=== PATIENT | male | born 1945 | race Caucasian/White ===

== ENCOUNTER 2016-10-25 15:31 | Inpatient (IN) | payer MEDICARE, BC ==
[~2016-10-25] VITALS: Ht 180.3 cm; Wt 76.4 kg
[~2016-10-25 15:31] MED LIST: ALLO100T PO; BRIN8DRO LEFTEYE; CLOP75TA16 PO
[2016-10-25] MEDS ORDERED: ASPIRIN 325MG EC TABLET PO ONE (16:15)
[2016-10-25 16:57] LABS: BASOPHILS % 0.8 % (0.0-2.0); CHLORIDE 107 mEq/L (98-107); EOSINOPHILS % 5.7 % (0.0-5.0); HEMATOCRIT. 40.5 % (42.0-52.0); HEMOGLOBIN. 13.9 g/dL (14.0-18.0); LYMPHOCYTES % 34.4 % (20.0-50.0); MEAN CORPUSCULAR HEMOGLOBIN 32.4 pg (28.0-32.0); MEAN CORPUSCULAR VOLUME 94.6 fL (80.0-94.0); MONOCYTES % 13.4 % (2.0-8.0); NEUTROPHILS % 45.7 % (40.0-76.0); PLATELET 202 x1000/uL (130-400); RED BLOOD CELL COUNT 4.28 mill/uL (4.7-6.1)
[2016-10-25 17:00] LABS: INR 1.1; PROTHROMBIN TIME 11.4 sec (9.4-11.6)
[2016-10-25 17:03] LABS: CARBON DIOXIDE 28 mEq/L (21-32)
[2016-10-25 17:07] LABS: TROPONIN I < 0.02 ng/mL (0.00-0.04)
[2016-10-25 21:05] VITALS: BP 140/45
[2016-10-25 22:00] VITALS: BP 114/70
[2016-10-25] MEDS ORDERED: HYDROCODONE/ACETAMINOPHEN 5/325MG TABLET PO PRN (23:30)
[2016-10-25] MEDS ORDERED: ONDANSETRON HCL 4MG/2ML VIAL IV PRN (23:30)
[2016-10-25] MEDS ORDERED: IPRATROPIUM/ALBUTEROL 0.5-3(2.5)MG/3ML NEB INH PRN (23:30)
[2016-10-25] MEDS ORDERED: CLONIDINE 0.1MG TABLET PO PRN (23:30)
[2016-10-25] MEDS ORDERED: MAGNESIUM/ALUMINUM HYDROXIDE/SIMETHICONE 30ML UDC PO PRN (23:30)
[2016-10-25] MEDS ORDERED: DOCUSATE SODIUM 100MG CAPSULE PO PRN (23:30)
[2016-10-25] MEDS ORDERED: ACETAMINOPHEN 325MG TABLET PO PRN (23:30)
[2016-10-26] VITALS (18 sets, daily range): BP systolic 90–128; BP diastolic 53–79
[2016-10-26 01:50] LABS: CLARITY URINE CLEAR (CLEAR); COLOR URINE YELLOW (YELLOW); GLUCOSE URINE NEGATIVE (NEGATIVE); KETONES URINE NEGATIVE (NEGATIVE); LEUKOCYTE ESTERASE URINE NEGATIVE (NEGATIVE); NITRITE URINE NEGATIVE (NEGATIVE); OCCULT BLOOD URINE NEGATIVE (NEGATIVE); PROTEIN URINE NEGATIVE (NEGATIVE); SPECIFIC GRAVITY URINE 1.022 (1.005-1.030); UROBILINOGEN URINE 0.2 E.U./dL (0.2-1.0)
[2016-10-26] MEDS ORDERED: ZET10 PO (02:34)
[2016-10-26] MEDS ORDERED: ROSU5TAB PO (02:34)
[2016-10-26] MEDS ORDERED: OLME40TA12 PO (02:34)
[2016-10-26] MEDS ORDERED: LORA1TAB PO (02:34)
[2016-10-26] MEDS ORDERED: ASPI-867 PO (02:34)
[2016-10-26] MEDS ORDERED: ATEN100T PO (02:34)
[2016-10-26] MEDS ORDERED: COLC0.6T66 PO (02:34)
[2016-10-26 02:53] LABS: *AMPHETAMINES SCREEN URINE NEGATIVE (NEGATIVE); *BARBITURATES SCREEN URINE NEGATIVE (NEGATIVE); *BENZODIAZEPINES SCREEN URINE NEGATIVE (NEGATIVE); *COCAINE SCREEN URINE NEGATIVE (NEGATIVE); CANNABINOID URINE SCREEN NEGATIVE (NEGATIVE); METHADONE URINE SCREEN NEGATIVE (NEGATIVE); OPIATES URINE SCREEN NEGATIVE (NEGATIVE); PHENCYCLIDINE URINE SCREEN NEGATIVE (NEGATIVE)
[2016-10-26 06:31] LABS: BASOPHILS % 0.8 % (0.0-2.0); EOSINOPHILS % 8.2 % (0.0-5.0); HEMATOCRIT. 40.8 % (42.0-52.0); HEMOGLOBIN. 14.1 g/dL (14.0-18.0); LYMPHOCYTES % 43.8 % (20.0-50.0); MEAN CORPUSCULAR HEMOGLOBIN 32.7 pg (28.0-32.0); MEAN CORPUSCULAR VOLUME 94.6 fL (80.0-94.0); MEAN PLATELET VOLUME 8.1 fl (7.4-10.4); NEUTROPHILS % 33.2 % (40.0-76.0); PLATELET 184 x1000/uL (130-400); RED BLOOD CELL COUNT 4.32 mill/uL (4.7-6.1); RED CELL DISTRIBUTION WIDTH 13.1 % (11.6-14.6)
[2016-10-26 07:59] LABS: CARBON DIOXIDE 23 mEq/L (21-32); CREATINE KINASE 190 IU/L (39-308); CREATINE KINASE MB FRACTION 2.8 ng/mL (0.5-3.6); HDL CHOLESTEROL 38 mg/dL (40-59); LDL CHOLESTEROL 84 mg/dL (5-100); TROPONIN I < 0.02 ng/mL (0.00-0.04)
[2016-10-26 08:41] LABS: CHLORIDE 106 mEq/L (98-107)
[2016-10-26] MEDS: ALLOPURINOL 100 MG TABLET PO SCH ×2 (08:46→17:14)
[2016-10-26] MEDS: EZETIMIBE 10MG TABLET PO SCH (08:46)
[2016-10-26] MEDS: ASPIRIN 81MG EC TABLET PO SCH (08:46)
[2016-10-26] MEDS: CLOPIDOGREL 75MG TABLET PO SCH (08:47)
[2016-10-26] MEDS: TIMOLOL MALEATE 0.5% OPHTH DROPS 5ML EACHEYE SCH ×2 (08:48→21:00)
[2016-10-26] MEDS: SIMBRINZA LEFTEYE SCH ×2 (08:48→17:15)
[2016-10-26] MEDS ORDERED: ENOXAPARIN 40MG/0.4ML SYR SUBCUT SCH (09:00)
[2016-10-26] MEDS ORDERED: PATIENT OWN MED LEFTEYE SCH (09:00)
[2016-10-26] MEDS ORDERED: COLCHICINE 0.6MG TABLET PO SCH (09:00)
[2016-10-26] MEDS ORDERED: NITROGLYCERIN OINT 1GM/INCH UDPKT TD SCH (12:00)
[2016-10-26] MEDS ORDERED: LIDOCAINE HCL 1% 20ML VIAL (Pyxis) INJ ONE (14:37)
[2016-10-26] MEDS ORDERED: MIDAZOLAM HCL 2 MG/2 ML VIAL ONE (14:50)
[2016-10-26] MEDS ORDERED: FENTANYL CITRATE/PF 50MCG/ML 2ML VIAL ONE (14:50)
[2016-10-26] MEDS ORDERED: IOHEXOL-300 100 ML BOTTLE ONE ×2 (14:55→15:30)
[2016-10-26] MEDS ORDERED: HEPARIN SODIUM 1,000 UNIT/1ML VIAL IV ONE ×2 (14:58→15:18)
[2016-10-26 15:10] LABS: CREATINE KINASE 163 IU/L (39-308); CREATINE KINASE MB FRACTION 2.3 ng/mL (0.5-3.6); TROPONIN I < 0.02 ng/mL (0.00-0.04)
[2016-10-26] MEDS ORDERED: IOVERSOL 240MG/ML 100ML BOTTLE IV ONE (15:23)
[2016-10-26] MEDS ORDERED: ATROPINE SULFATE 1MG/10ML SYR IV PRN (16:00)
[2016-10-26] MEDS ORDERED: ACETAMINOPHEN 325MG TABLET PO PRN (16:00)
[2016-10-26] MEDS: AMLODIPINE 2.5MG TABLET PO SCH (16:00)
[2016-10-26] MEDS ORDERED: CLOPIDOGREL 75MG TABLET ONE (16:02)
[2016-10-26] MEDS: SODIUM CHL 0.45% + KCL 20MEQ/L 1,000 ML IV SCH (19:56)
[2016-10-26] MEDS ORDERED: MEDICATION NOT ON FORMULARY EA (Rosuvastatin Calcium (Crestor) 1 TAB) PO SCH (21:00)
[2016-10-26] MEDS ORDERED: ATORVASTATIN CALCIUM 10MG TABLET PO SCH (21:00)
[2016-10-27] VITALS (7 sets, daily range): BP systolic 93–125; BP diastolic 47–68
[2016-10-27] MEDS: SODIUM CHL 0.45% + KCL 20MEQ/L 1,000 ML IV SCH (04:41)
[2016-10-27 07:25] LABS: BASOPHILS % 0.4 % (0.0-2.0); EOSINOPHILS % 3.3 % (0.0-5.0); HEMATOCRIT. 37.3 % (42.0-52.0); HEMOGLOBIN. 13.1 g/dL (14.0-18.0); LYMPHOCYTES % 32.4 % (20.0-50.0); MEAN CORPUSCULAR HEMOGLOBIN 32.9 pg (28.0-32.0); MEAN CORPUSCULAR VOLUME 93.7 fL (80.0-94.0); MEAN PLATELET VOLUME 7.9 fl (7.4-10.4); MONOCYTES % 11.3 % (2.0-8.0); NEUTROPHILS % 52.6 % (40.0-76.0); PLATELET 175 x1000/uL (130-400); RED BLOOD CELL COUNT 3.98 mill/uL (4.7-6.1); RED CELL DISTRIBUTION WIDTH 13.2 % (11.6-14.6)
[2016-10-27 07:48] LABS: CARBON DIOXIDE 24 mEq/L (21-32); CHLORIDE 105 mEq/L (98-107)
[2016-10-27 07:53] LABS: TROPONIN I 0.21 ng/mL (0.00-0.04)
[2016-10-27] MEDS: ASPIRIN 81MG EC TABLET PO SCH (08:53)
[2016-10-27] MEDS: CLOPIDOGREL 75MG TABLET PO SCH (08:53)
[2016-10-27] MEDS: EZETIMIBE 10MG TABLET PO SCH (08:54)
[2016-10-27] MEDS: TIMOLOL MALEATE 0.5% OPHTH DROPS 5ML EACHEYE SCH (08:54)
[2016-10-27] MEDS: ALLOPURINOL 100 MG TABLET PO SCH (08:54)
[2016-10-27] MEDS: AMLODIPINE 2.5MG TABLET PO SCH (08:55)
[2016-10-27] MEDS: SIMBRINZA LEFTEYE SCH (08:56)
[2016-10-27] MEDS ORDERED: NITROGLYCERIN 50MCG/ML 10ML VIAL (CATH LAB) IV ONE (10:06)
== END 2016-10-27 11:00 | disposition home or self-care (01) | DRG 247 ==
LOC: ER 16:26 → 5EST 19:03 → ENRESERV 19:20 → 5EST 22:15 → 3WST 10-26 16:34
PROVIDERS: ADMIT Internal Medicine; ATTEND Internal Medicine
PROC: 027135Z Dilation of Coronary Artery, Two Arteries with Two Drug-eluting Intraluminal Devices, Percutaneous Approach (ICD-10-PCS; principal; 2016-10-26)
PROC: 4A023N7 Measurement of Cardiac Sampling and Pressure, Left Heart, Percutaneous Approach (ICD-10-PCS; 2016-10-26)
PROC: B211YZZ Fluoroscopy of Multiple Coronary Arteries using Other Contrast (ICD-10-PCS; 2016-10-26)
PROC: B213YZZ Fluoroscopy of Multiple Coronary Artery Bypass Grafts using Other Contrast (ICD-10-PCS; 2016-10-26)
PROC: B218YZZ Fluoroscopy of Left Internal Mammary Bypass Graft using Other Contrast (ICD-10-PCS; 2016-10-26)
DX: I25.110 Atherosclerotic heart disease of native coronary artery with unstable angina pectoris (principal); I11.9 Hypertensive heart disease without heart failure; H40.9 Unspecified glaucoma; M10.9 Gout, unspecified; E78.5 Hyperlipidemia, unspecified; N28.9 Disorder of kidney and ureter, unspecified; E78.00 Pure hypercholesterolemia, unspecified; F41.9 Anxiety disorder, unspecified; I25.2 Old myocardial infarction; Z79.899 Other long term (current) drug therapy; Z95.5 Presence of coronary angioplasty implant and graft; Z79.82 Long term (current) use of aspirin
CPT/HCPCS: 36415; 71010; 80048; 80053; 80061; 80305; 81003; 82550; 82553; 83036; 83735; 83880; 84443; 84484; 84550; 85025; 85347; 85610; 85651; 92937; 93005; 93306; 93459; 93970; 99285; C1725; C1760; C1769; C1887; C1893; J1644; J1650; J2250; J3010; J3480; J3490; Q9967

== ENCOUNTER 2024-09-07 06:37 | Inpatient (IN) | payer MEDICARE ==
[~2024-09-07] VITALS: Ht 180.3 cm; Wt 80.8 kg
[~2024-09-07 06:37] MED LIST changes: +ALIR75PE5 SQ; +AMLO5TAB88 PO; +ASPI-867 PO; +ATEN50TA PO; -BRIN8DRO LEFTEYE; +CLOP-31 PO; -CLOP75TA16 PO; +EZET10TA81 PO; +INCL284S INJ; +LORA-249 PO; +NITR0.4T49 SL; +OLME40TA11 PO; +RANO500T6 PO; +SILD100T69 PO
[2024-09-07] MEDS ORDERED: SODIUM CHLORIDE 0.45% 500 ML IV ONE (07:30)
[2024-09-07] MEDS ORDERED: IODIXANOL 320 MG/ML 150ML BOTTLE IV ONE (08:04)
[2024-09-07] MEDS ORDERED: LIDOCAINE HCL 1% 20ML VIAL ONE (08:04)
[2024-09-07] MEDS ORDERED: HEPARIN 1000 UNITS/ML 10ML ONE (08:04)
[2024-09-07] MEDS ORDERED: FENTANYL CITRATE/PF 50MCG/ML 2ML VIAL ONE (08:10)
[2024-09-07] MEDS ORDERED: MIDAZOLAM HCL 2 MG/2 ML VIAL ONE (08:10)
[2024-09-07] MEDS ORDERED: CLOPIDOGREL 75MG TABLET ONE (09:54)
[2024-09-07] MEDS ORDERED: ASPIRIN 325MG TABLET ONE (09:54)
[2024-09-07] MEDS ORDERED: ONDANSETRON HCL 4MG/2ML INJ IV PRN (10:00)
[2024-09-07] MEDS ORDERED: ACETAMINOPHEN 325MG TABLET PO PRN (10:00)
[2024-09-07] MEDS ORDERED: ATROPINE SULFATE 1MG/10ML SYR IV PRN (10:00)
[2024-09-07] MEDS ORDERED: ASPIRIN 325MG EC TABLET PO ONE (10:01)
[2024-09-07 10:56] VITALS: BP 118/78; PULSE 70; RESP 14; TEMP 36.5292
[2024-09-07 12:00] VITALS: BP 121/65; PULSE 62; RESP 14; TEMP 36.3; O2SAT 97
[2024-09-07 14:33] LABS: HEPATITIS C AB NON REACTIVE (Neg) (Negative)
[2024-09-07 16:00] VITALS: BP 119/59; PULSE 71; RESP 12; TEMP 36.4; O2SAT 98
[2024-09-07 20:00] VITALS: BP 119/59; PULSE 71; RESP 13; TEMP 36.7; O2SAT 95
[2024-09-07] MEDS: AMLODIPINE 5MG TABLET PO SCH (20:28)
[2024-09-07] MEDS: RANOLAZINE 500 MG TAB.SR.12H PO SCH (20:35)
[2024-09-08] VITALS: BP 124/66; RESP 16; TEMP 36.7; O2SAT 96
[2024-09-08 04:00] VITALS: BP 109/52; RESP 14; TEMP 36.6; O2SAT 97
[2024-09-08 07:14] LABS: BASOPHILS % 0.4 % (0.0-2.0); EOSINOPHILS % 4.4 % (0.0-5.0); HEMATOCRIT. 39.1 % (42.0-52.0); HEMOGLOBIN. 13.5 g/dL (14.0-18.0); LYMPHOCYTES % 32.7 % (20.0-50.0); MEAN PLATELET VOLUME 8.4 fl (7.4-10.4); MONOCYTES % 12.0 % (2.0-8.0); NEUTROPHILS % 50.5 % (40.0-76.0); PLATELET 188 x1000/uL (130-400); RED BLOOD CELL COUNT 4.01 mill/uL (4.7-6.1); RED CELL DISTRIBUTION WIDTH 13.5 % (11.6-14.6)
[2024-09-08 07:32] LABS: CREATININE 1.5 mg/dL (0.6-1.3); UREA NITROGEN BLOOD 15 mg/dL (9-23)
[2024-09-08 08:00] VITALS: BP 114/65; PULSE 76; RESP 18; TEMP 36.6; O2SAT 97
[2024-09-08] MEDS: ASPIRIN 325MG TABLET PO SCH (08:50)
[2024-09-08] MEDS: CLOPIDOGREL 75MG TABLET PO SCH (08:50)
[2024-09-08] MEDS: ATENOLOL 50 MG TABLET PO SCH (08:50)
[2024-09-08] MEDS: EZETIMIBE 10MG TABLET PO SCH (08:50)
[2024-09-08 11:41] VITALS: BP 109/67; PULSE 71; TEMP 98; O2SAT 98
[2024-09-08 12:00] VITALS: BP 109/67; PULSE 67; TEMP 36.7; O2SAT 96
== END 2024-09-08 15:05 | disposition home or self-care (01) | DRG 279 ==
LOC: CCL 06:37 → 3WST 06:38
PROVIDERS: ADMIT Specialist; ATTEND Specialist
PROC: 04FL3ZZ Fragmentation of Left Femoral Artery, Percutaneous Approach (ICD-10-PCS; principal; 2024-09-07)
PROC: 047L34Z Dilation of Left Femoral Artery with Drug-eluting Intraluminal Device, Percutaneous Approach (ICD-10-PCS; 2024-09-07)
PROC: B41GYZZ Fluoroscopy of Left Lower Extremity Arteries using Other Contrast (ICD-10-PCS; 2024-09-07)
DX: I70.202 Unspecified atherosclerosis of native arteries of extremities, left leg (principal); I25.10 Atherosclerotic heart disease of native coronary artery without angina pectoris; I10 Essential (primary) hypertension; F41.9 Anxiety disorder, unspecified; E78.5 Hyperlipidemia, unspecified; Z79.02 Long term (current) use of antithrombotics/antiplatelets; Z79.82 Long term (current) use of aspirin; Z79.899 Other long term (current) drug therapy; Z88.0 Allergy status to penicillin; Z88.6 Allergy status to analgesic agent; Z95.0 Presence of cardiac pacemaker
CPT/HCPCS: 36415; 37226; 75710; 80048; 83735; 85025; 85347; 86705; 87340; 93005; A4606; C1725; C1769; C1887; C1893; C1894; J1644; J2003; J2250; J3010; Q9967